=== PATIENT | male | born 2000 | race Caucasian/White ===

== ENCOUNTER 2023-03-12 21:54 | Emergency (ER) | payer BC, SELFPAY ==
[2023-03-12 22:19] VITALS: BP 133/66; BP 145/85; PULSE 60; PULSE 88; RESP 16; TEMP 36.6; O2SAT 96; O2SAT 99; BMI 23.7
[2023-03-12 22:39] LABS: Basophils Percent Auto 0.2 % (0-2); Eosinophils Percent Auto 0.1 % (0-4); Hematocrit 47.5 % (42.0-52.0); Hemoglobin 16.2 g/dl (14.0-18.0); Imm Gran Abs Auto 0.07 X10*3/uL (0.00-0.03); Imm Gran Pct Auto 0.4 % (0.0-0.4); Lymphocytes Absolute Auto 0.3 X10*3/uL (1.2-4.9); Lymphocytes Percent Auto 1.9 % (20-40); MANUAL DIFF FLAG SCAN; Mean Corpuscular HGB Conc 34.1 g/dl (31.0-36.0); Mean Corpuscular Hemoglobin 29.5 pg (27.0-33.0); Mean Corpuscular Volume 86.5 fL (80.0-98.0); Mean Platelet Volume 10.3 fL (9.4-12.4); Monocytes Absolute Auto 1.7 X10*3/uL (0.1-1.2); Monocytes Percent Auto 9.5 % (2-11); Neutrophils Absolute Auto 15.8 x10*3/uL (2.0-8.3); Neutrophils Percent Auto 87.9 % (45-73); Platelet Count 194 X10*3/uL (160-400); Red Blood Count 5.49 X10*6/uL (4.60-5.80); Red Cell Distribution Width 12.7 % (11.0-16.0); SCAN SMEAR FLAG 1
[2023-03-12 22:55] LABS: Alanine Aminotransferase 15 U/L (0-40); Albumin Level 4.9 g/dL (3.5-5.0); Alkaline Phosphatase 61 U/L (39-117); Anion Gap 13 (12-20); Aspartate Amino Transferase 20 U/L (5-37); Bilirubin Direct 0.3 mg/dL (0.0-0.5); Bilirubin Total 0.6 mg/dL (0.0-1.0); Blood Urea Nitrogen 21 mg/dL (9-16); Calcium 9.7 mg/dL (8.4-10.2); Carbon Dioxide 22 mmol/L (22-29); Chloride 107 mmol/L (96-108); Creatinine Clr Calc Pharmacy 133.8; Estimated Glomerular Filt Rate > 60; Glucose Random 117 mg/dL (60-115); Lipase 23 U/L (8-78); Potassium 4.2 mmol/L (3.3-5.1); Sodium 138 mmol/L (135-145); Total Protein 8.1 g/dL (6.5-8.0)
[2023-03-12 23:45] LABS: SLIDE REVIEW VERIFIED
[2023-03-13 02:00] VITALS: BP 128/68; PULSE 84; RESP 16; TEMP 37; O2SAT 100
--- OUTSIDE RECORDS SUMMARY | 2023-03-13 02:39 | XMS_ITS | Referral Summary ---
Author Name Unknown Organization [facility] Address [address] [place] [address] Care Team Providers Care Viscosity Tester Name Role Phone NONE, PCPONLY Primary Care Physician Unavailab le Encounter Date(s): 08/18/19 - 08/18/19 [facility] [address] [place] [address] Encounter Diagnosis Otalgia, right ear(Discharge Diagnosis) - 08/18/19 Strep throat(Discharge Diagnosis) - 08/18/19 Discharge Disposition: Home or Self Care Vital Signs Most recent to oldest [Reference Range]: 1 Temperature Oral [96.4-99.1 DegF] 97.9 D egF (08/18/19 3:19 PM) Peripheral Pulse Rate [60-100 bpm] 82 bp m (08/18/19 3:19 PM) Respiratory Rate [14-20 br/min] 16 br/mi n (08/18/19 3:19 PM) Blood Pressure [90-130/60-90 mmHg] 116/8 0mmHg (08/18/19 3:19 PM) Mean Arterial Pressure, Cuff 92 mmHg (08/18/19 3:19 PM) SpO2 [94-100 %] 100 % (08/18/19 3:19 PM) Clinical Weight 77.111 kg (08/18/19 3:19 PM) BSA Measured 2 (08/18/19 3: PM) Body Mass Index Measured 23.1 kg/m2 (08/18/19 3:19 PM) Height/Length Measured 183 cm (08/18/19 3:19 PM) BMI Exclusion Reason None (08/18/19 3:19 PM) Height/Length Inches 72 inch (08/18/19 3:19 PM) Weight Lbs 170 lb (08/18/19 3:19 PM) Allergies, Adverse Reactions, Alerts No Known Medication Allergies Medications cefdinir 300 mg oral capsule 300 mg, = 1 cap, Oral, q12hr (specified start), X 10 day(s), # 20 cap, 0 Refill(s), [id number] 1 cap Oral q12hr (specified start),x10 day(s) Start Date: 08/18/19 Stop Date: 08/28/19 Status: Ordered mupirocin 2% topical cream 1 david, TOP, TID, # 30 gm, 0 Refill(s), Pharmacy: [facility], 1 david TOP TID Start Date: 02/27/19 Status: Ordered ProAir HFA 90 mcg/inh inhalation aerosol 1 puff(s), INH, q4hr, # 8.5 gm, 0 Refill(s), as needed for wheezing, [id number], 1 puff(s) INH q4hr,PRN:as needed for wheezing Start Date: 06/10/19 Status: Ordered Social History Social History Type Response Smoking Status Never smoker; Concer ns about tobacco use in household: No entered on: 02/27/19 Hospital Discharge Instructions Patient Education Strep Throat Follow Up Care 08/18/2019 15:02:07 With:Follow up 2-3 days or as needed Address:Unknown When:Unknown
--- OUTSIDE RECORDS SUMMARY | 2023-03-13 02:39 | XMS_ITS | Referral Summary ---
Author Name Unknown Organization [facility] Address [address] [place] [address] Care Team Providers Care Turn Out Name Role Phone NONE, PCPONLY Primary Care Physician Unavailab le Encounter Date(s): 07/30/19 - 07/30/19 [facility] [address] [place] [address] Encounter Diagnosis Strep pharyngitis(Discharge Diagnosis) - 07/30/19 Discharge Disposition: Home or Self Care Vital Signs Most recent to oldest [Reference Range]: 1 Temperature Tympanic [97.9-100.6 DegF] 9 9.1 DegF (07/30/19 9:55 AM) Peripheral Pulse Rate [60-100 bpm] 82 bp m (07/30/19 9:55 AM) Respiratory Rate [14-20 br/min] 16 br/mi n (07/30/19 9:55 AM) Blood Pressure [90-130/60-90 mmHg] 111/7 5mmHg (07/30/19 9:55 AM) Mean Arterial Pressure, Cuff 87 mmHg (07/30/19 9:55 AM) SpO2 [94-100 %] 98 % (07/30/19 9:55 AM) Clinical Weight 74.843 kg (07/30/19 9:55 AM) BSA Measured 2 (07/30/19 9:55 AM) Body Mass Index Measured 22.4 kg/m2 (07/30/19 9:55 AM) Height/Length Measured 183 cm (07/30/19 9:55 AM) BMI Exclusion Reason None (07/30/19 9:55 AM) Height/Length Inches 72 inch (07/30/19 9:55 AM) Weight Lbs 165 lb (07/30/19 9:55 AM) Allergies, Adverse Reactions, Alerts No Known Medication Allergies Medications amoxicillin 500 mg oral capsule 500 mg, = 1 cap, Oral, q12hr (specified start), X 10 day(s), # 20 cap, 0 Refill(s), [id number] 1 cap Oral q12hr (specified start),x10 day(s) Start Date: 07/30/19 Stop Date: 08/09/19 Status: Ordered mupirocin 2% topical cream 1 david, TOP, TID, # 30 gm, 0 Refill(s), Pharmacy: [facility], 1 david TOP TID Start Date: 02/27/19 Status: Ordered ProAir HFA 90 mcg/inh inhalation aerosol 1 puff(s), INH, q4hr, # 8.5 gm, 0 Refill(s), as needed for wheezing, [id number] 1 puff(s) INH q4hr,PRN:as needed for wheezing Start Date: 06/10/19 Status: Ordered Social History Social History Type Response Smoking Status Never smoker; Concer ns about tobacco use in household: No entered on: 02/27/19 Hospital Discharge Instructions Patient Education Strep Throat Follow Up Care 07/30/2019 09:36:09 With:Follow up 2-3 days or as needed Address:Unknown When:Unknown
[2023-03-13 04:31] VITALS: BP 110/68; PULSE 79; RESP 13; TEMP 37.1; O2SAT 99
--- NOTE | 2023-03-13 06:41 | ED_ITS ---
HPI - Nausea/Vomiting/Diarrhea General Chief complaint: Nausea/Vomiting/Diarrhea Stated complaint: N/V/D Time Seen by Provider: 03/13/23 06:34 Source: patient Mode of arrival: ambulatory Limitations: no limitations History of Present Illness HPI Narrative: patient vomiting yesterday. Patient on amoxicillin and prednisone for a bee sting. no hives, no itching no tongue swelling. MD elicited complaint: nausea and vomiting Related Data Previous Rx's Medication Instructions Recorded amoxicillin 500 mg-potassium 1 tab PO BID #7 tabs 03/13/23 clavulanate 125 mg tablet (Augmentin) ondansetron 4 mg disintegrating 4 mg PO Q8H 4 days #12 tabs 03/13/23 tablet Allergies Allergy/AdvReac Type Severity Reaction Status Date / Time No Known Allergies Allergy Verified 03/12/23 22:18 Review of Systems Review of Systems: Yes all other systems are reviewed and are negative Neurologic: Denies Sensory deficit (Neuro) [facility] Social History Social History Alcohol intake: never Smoked in Last 30 Days: No Use of substances other than those prescribed or required for medical reasons: No Advance Directives: No Advance Directives Information Provided: Yes Physical Exam Vital Signs: Vital Signs: Last Vital Signs Temp 98.7 F 03/13/23 04:31 Pulse 73 03/13/23 07:18 Resp 16 03/13/23 07:18 BP 137/72 03/13/23 07:18 Pulse Ox 97 03/13/23 07:18 O2 Del Method Room Air 03/13/23 07:18 BMI result Body Mass Index 23.7 Const: General: healthy appearing Nutritional Appearance: average body habitus Orientation/consciousness: oriented to person and patient oriented x3 Limitations: no limitations HEENT: Head: Yes normal to inspection Ears: external ears normal General nose exam: Normal external nose present Mouth: Normal oral and palatal mucosa present and oropharynx normal Throat: Yes posterior oropharynx normal Eyes: General: appearance normal, both eyes and all related structures Neck: Other: supple Neck: Yes normal visual inspection Chest: Chest palpation & inspection: normal inspection of the chest Resp: Auscultation: clear to auscultation bilaterally Cardio: Jugular venous distension: no JVD Rate: regular rate Rhythm: regular rhythm Heart sounds: S1 normal heart sound present and S2 normal heart sound present GI: Inspection: Yes normal to inspection Palpation (GI): Soft to palpation, nontender and No hepatosplenomegaly present Auscultation: normal bowel sounds : General: Yes no CVA tenderness Back/Spine/Pelvis: Back: no CVA tenderness Skin: Other: right hand with erythema and warmth and swelling Neuro: General: oriented to person and patient oriented x3 Cranial nerves: Yes CN's II-XII intact bilaterally Motor exam (neuro): 5/5 motor strength present throughout Sensory Exam: No Sensory deficit (Neuro) Extrem: General: Yes normal to inspection Psych: Appearance: grossly normal Course Reevaluation(s) Reevaluation #1: patient with likely side effects to taking amoxicillin and prednisone at the same time. Hand could still have cellulitis will stop prednisone and continue amoxicillin. will dc home with zofran Time: 06:49 Medical Decision Making Differential Diagnosis Differential Diagnoses: The differential diagnosis associated with the presentation includes (cellulitis, medication side effect, allergic reaction, ) Admission/Observation Consideration of admission/observation: Escalation of care including admission/observation considered (In a patient with cellulitis and vomiting admission was considered) Lab Data MDM Lab Attestation statement: I reviewed the patient's lab results. (wbc 18 most likely secondary to either his cellulitis, demargination from vomiting or the prednisone, lfts normal) 03/12/23 22:32 03/12/23 22:32 Labs: Lab Results 03/12/23 03/12/23 Range/Units 22:32 22:32 WBC 18.0 H (4.8-10.8) X10*3/uL RBC 5.49 (4.60-5.80) X10*6/uL Hgb 16.2 (14.0-18.0) g/dl Hct 47.5 (42.0-52.0) % MCV 86.5 (80.0-98.0) fL MCH 29.5 (27.0-33.0) pg MCHC 34.1 (31.0-36.0) g/dl RDW 12.7 (11.0-16.0) % Plt Count 194 (160-400) X10*3/uL MPV 10.3 (9.4-12.4) fL Immature Gran % (Auto) 0.4 (0.0-0.4) % Neut % (Auto) 87.9 H (45-73) % Lymph % (Auto) 1.9 L (20-40) % Kenton % (Auto) 9.5 (2-11) % Eos % (Auto) 0.1 (0-4) % Baso % (Auto) 0.2 (0-2) % Lymph # (Auto) 0.3 L (1.2-4.9) X10*3/uL [place]on # (Auto) 1.7 H (0.1-1.2) X10*3/uL Eos # (Auto) 0.0 (0.0-0.4) X10*3/uL Baso # (Auto) 0.0 (0.0-0.2) X10*3/uL Abs Immat Gran (auto) 0.07 H (0.00-0.03) X10*3/uL Absolute Neuts (auto) 15.8 H (2.0-8.3) x10*3/uL Absolute Nucleated RBC 0.000 (0.0-0.012) X10*3/uL Nucleated RBC % (auto) 0.0 (0.0-0.2) /100WBC Smear Tech's Comments VERIFIED Sodium 138 (135-145) mmol/L Potassium 4.2 (3.3-5.1) mmol/L Chloride 107 (96-108) mmol/L Carbon Dioxide 22 (22-29) mmol/L Anion Gap 13 (12-20) BUN 21 H (9-16) mg/dL Creatinine 0.95 (0.5-1.4) mg/dL Estim Creat Clear Calc 133.8 Estimated GFR > 60 Random Glucose 117 H (60-115) mg/dL Calcium 9.7 (8.4-10.2) mg/dL Total Bilirubin 0.6 (0.0-1.0) mg/dL Direct Bilirubin 0.3 (0.0-0.5) mg/dL AST 20 (5-37) U/L ALT 15 (0-40) U/L Alkaline Phosphatase 61 (39-117) U/L Total Protein 8.1 H (6.5-8.0) g/dL Albumin 4.9 (3.5-5.0) g/dL Lipase 23 (8-78) U/L Independent Historian Clinical information obtained from an independent historian. History obtained from or confirmed by: Friend Tests considered The following testing was considered but not selected: blood cultures were considered but patient is not toxic appearing Discharge Plan Discharge Clinical Impression: Drug-induced nausea and vomiting, Cellulitis Patient Disposition: Home, Self-Care Instructions: Cellulitis (ED), Acute Nausea and Vomiting (ED) Prescriptions: New ondansetron 4 mg tablet,disintegrating 4 mg PO Q8H 4 Days Qty: 12 0RF amoxicillin-pot clavulanate [Augmentin] 500-125 mg tablet 1 tab PO BID Qty: 7 0RF Referrals: Physician,Unknown J [Primary Care Provider] - 1 week
[2023-03-13 07:18] VITALS: BP 137/72; PULSE 73; RESP 16; O2SAT 97
[2023-03-13] MEDS: Amoxicillin/Potassium Clav 500 MG TABLET PO (07:36)
--- NOTE | 2023-03-13 07:43 | PC.NURSE ---
Alert and oriented. Declined to be medicated with zofran but took abt. States has not slept since last night and would like to be discharged. Provider aware. Discharge plan reviewed with patient and family who verbalized understanding. Provider to send to scripts to pharmacy in [facility] per family request.
== END 2023-03-13 07:45 | disposition home or self-care (01) ==
PROVIDERS: Emergency Provider Emergency Medicine
DX: R11.2 Nausea with vomiting, unspecified (principal); T50.995A Adverse effect of other drugs, medicaments and biological substances, initial encounter; Y92.9 Unspecified place or not applicable; L03.113 Cellulitis of right upper limb
CPT/HCPCS: 36415; 80048; 80076; 83690; 85025; 99283; 99284